=== PATIENT | female | born 1985 | race American Indian/Alaskan Native ===

== ENCOUNTER 2017-12-10 07:21 | Emergency (ER) | payer OTHER ==
[2017-12-10 07:54] LABS: Hematocrit 37.8 % (30.3-42.9); Hemoglobin 12.7 gm/dl (10.1-14.3); Mean Corpuscular HGB Conc 34 % (30-34); Mean Corpuscular Hemoglobin 30 pg (28-32); Mean Corpuscular Volume 91 fl (79-97); Platelet Count 223 K/mm3 (140-440); Red Blood Count 4.17 M/mm3 (3.65-5.03); Red Cell Distribution Width 13.7 % (13.2-15.2)
[2017-12-10 08:22] LABS: HCG Qualitative,Urine Positive (Negative)
--- NOTE | 2017-12-10 09:00 | Emergency Department Report ---
ED General Adult HPI - General Chief complaint: Abdominal Pain Stated complaint: 7WKS PREG. ABD PAIN/VAG BLEEDING Time Seen by Provider: 12/10/17 09:00 Source: patient Mode of arrival: Ambulatory Limitations: No Limitations - History of Present Illness Initial comments: The patient is 7 weeks by dates. She states that she is never had an ectopic the triage note is wrong. She has been previously diagnosed with an ovarian cyst. She had some lower abdominal discomfort associated with minimal spotting. Both ECGs have resolved. She states she is ready to go home. She is already enrolled with an OB group on [facility]. She doesn't know the name of the doctors. She is asymptomatic at this time. She doesn't think that she is Rh-. -: Gradual Location: pelvis Radiation: non-radiation Quality: other (cramping) Consistency: now resolved Improves with: none Worsens with: none Associated Symptoms: denies other symptoms Treatments Prior to Arrival: none - Related Data Previous Rx's Medication Instructions Recorded Last Taken Type Nitrofurantoin [place]/M-Cryst 100 mg PO Q12HR #10 capsule 10/04/15 Unknown Rx [Macrobid CAP] Promethazine Dm [Phenergan Dm 5 ml PO Q6H PRN 7 Days 10/04/15 Unknown Rx 6.25/15 mg 5 ml] Allergies Allergy/AdvReac Type Severity Reaction Status Date / Time oxycodone AdvReac Nausea Verified 10/04/15 12:11 ED Review of Systems ROS: Stated complaint: 7WKS PREG. ABD PAIN/VAG BLEEDING Other details as noted in HPI Constitutional: denies: chills, fever Eyes: denies: eye pain, eye discharge, vision change ENT: denies: ear pain, throat pain Respiratory: denies: cough, shortness of breath, wheezing Cardiovascular: denies: chest pain, palpitations Endocrine: no symptoms reported Gastrointestinal: denies: abdominal pain, nausea, diarrhea Genitourinary: as per HPI, abnormal menses. denies: urgency, dysuria, discharge Musculoskeletal: denies: back pain, joint swelling, arthralgia Skin: denies: rash, lesions Neurological: denies: headache, weakness, paresthesias Psychiatric: denies: anxiety, depression Hematological/Lymphatic: denies: easy bleeding, easy bruising ED Past Medical Hx - Past Medical History Previous Medical History?: Yes Additional medical history: Hx of ectopic - Surgical History Hx Appendectomy: Yes - Social History Smoking Status: Never Smoker Substance Use Type: None - Medications Home Medications: Home Medications Medication Instructions Recorded Confirmed Last Taken Type Nitrofurantoin [place]/M-Cryst 100 mg PO Q12HR #10 capsule 10/04/15 Unknown Rx [Macrobid CAP] Promethazine Dm [Phenergan Dm 5 ml PO Q6H PRN 7 Days 10/04/15 Unknown Rx 6.25/15 mg 5 ml] ED Physical Exam - General Limitations: No Limitations General appearance: alert, in no apparent distress - Head Head exam: Present: atraumatic, normocephalic - Eye Eye exam: Present: normal appearance, PERRL, EOMI. Absent: scleral icterus - ENT ENT exam: Present: mucous membranes moist - Neck Neck exam: Present: normal inspection - Respiratory Respiratory exam: Present: normal lung sounds bilaterally. Absent: respiratory distress - Cardiovascular Cardiovascular Exam: Present: regular rate, normal rhythm. Absent: systolic murmur, diastolic murmur, rubs, gallop - GI/Abdominal GI/Abdominal exam: Present: soft, normal bowel sounds. Absent: distended, tenderness, guarding, rebound, rigid - Extremities Exam Extremities exam: Present: normal inspection - Back Exam Back exam: Present: normal inspection - Neurological Exam Neurological exam: Present: alert, oriented X3, CN II-XII intact. Absent: motor sensory deficit - Psychiatric Psychiatric exam: Present: normal affect, normal mood - Skin Skin exam: Present: warm, dry, intact, normal color. Absent: rash ED Course Vital Signs 12/10/17 12/10/17 12/10/17 07:31 09:13 09:15 Temperature 98.6 F 98.5 F Pulse Rate 88 90 Respiratory 18 15 14 Rate Blood Pressure 113/62 106/62 [Right] O2 Sat by Pulse 100 Oximetry ED Medical Decision Making - Lab Data Result diagrams: 12/10/17 07:39 12/10/17 07:39 Laboratory Results - last 24 hr 12/10/17 12/10/17 12/10/17 07:39 07:39 Unknown WBC 4.6 RBC 4.17 Hgb 12.7 Hct 37.8 MCV 91 MCH 30 MCHC 34 RDW 13.7 Plt Count 223 Urine HCG, Qual Positive A Blood Type A POSITIVE - Radiology Data Radiology results: report reviewed (6 week 4 day viable intrauterine . Small right ovarian cyst) Critical care attestation.: If time is entered above; I have spent that time in minutes in the direct care of this critically ill patient, excluding procedure time. ED Disposition Clinical Impression: First trimester bleeding, Right ovarian cyst Disposition: TO HOME OR SELFCARE Is pt being admited?: No Does the pt Need Aspirin: No Condition: Stable Instructions: Ovarian Cyst (ED), Threatened Miscarriage (ED) Additional Instructions: Return any acute change or problem. Otherwise follow-up with your usual OB doctor. Give them copy of your ultrasound report that I have given to you. Referrals: usual, OB provider [Other] - 3-5 Days Time of Disposition: 09:32
[2017-12-10 09:14] VITALS: BP 106/62
[2017-12-10 09:18] LABS: BUN/Creatinine Ratio 16; Blood Urea Nitrogen 8 mg/dL (7-17); Calcium 8.4 mg/dL (8.4-10.2); Hemolysis Index 6
--- NOTE | 2017-12-10 09:19 | Ultrasound Report ---
ULTRASOUND OB LESS THAN 14 WEEKS FETUS ULTRASOUND OB TRANSVAGINAL HISTORY: Vaginal bleeding, cramping, history of ectopic . COMPARISON: None at this facility. TECHNIQUE: Transabdominal and transvaginal ultrasound with color doppler interrogation. FINDINGS: Uterus: The uterus measures 11 x 6 x 8 cm. No uterine fibroids disease is detected. The cervix is within normal limits. Endometrium: An intrauterine gestational sac containing a small pole and yolk sac is identified. Heart rate measures 146 beats per minute. [place]-rump length measures 7.2 mm which correlates with a 6 week, 4 day . Estimated due date is 08/01/18. No subchorionic hemorrhage is visualized. Right ovary: 3.1 x 1.6 x 2.9 cm. A 2.5 cm cyst is identified in the right ovary. Left ovary: 2.6 x 1.2 x 2.3 cm. No focal abnormality. No pelvic fluid or mass is identified. Normal color doppler interrogation. IMPRESSION: Viable, single intrauterine estimated at 6 weeks, 4 days. No acute abnormality is appreciated. 2.5 cm right ovarian cyst.
== END 2017-12-10 09:51 | disposition home or self-care (01) ==
LOC: ED 07:21
DX: O46.8X1 Other antepartum hemorrhage, first trimester (principal); Z3A.01 Less than 8 weeks gestation of pregnancy
CPT/HCPCS: 36415; 76801; 76817; 80048; 81025; 84702; 85027; 86900; 86901